=== PATIENT | female | born 1975 | race African-American/Black ===

== ENCOUNTER 2020-04-25 04:39 | Day surgery (SDC) | payer OTHER ==
[2020-04-21 17:32] VITALS: BMI 37.5
[2020-04-25] MEDS ORDERED: amLODIPine BESYLATE 5 MG TABLET (FP) PO SCH (10:00)
[2020-04-25] MEDS ORDERED: MIDAZOLAM HCL 2 MG/2 ML SINGLE DOSE VIAL ONE (11:01)
[2020-04-25] MEDS ORDERED: VANCOMYCIN 1,000 MG VIAL (RESTRICTED TO ID ONLY) ONE (11:21)
[2020-04-25] MEDS ORDERED: DEXAMETHASONE SOD PHOSPHATE 4 MG/1 ML VIAL ONE (11:48)
[2020-04-25] MEDS ORDERED: KETOROLAC TROMETHAMINE 30 MG/1 ML VIAL ONE (11:48)
[2020-04-25] MEDS ORDERED: LIDOCAINE HCL/PF 2% SDV 5ML VIAL ONE (11:48)
[2020-04-25] MEDS ORDERED: HYDROmorphone HCl 2 MG/ML VIAL ONE (11:52)
[2020-04-25] MEDS ORDERED: methylPREDNISolone ACET (DEPO) 40 MG/1 ML VIAL IM ONE (12:02)
[2020-04-25] MEDS ORDERED: BUPIVACAINE HCL/PF 0.25% (2.5MG/ML) 10 ML VIAL IJ ONE (12:02)
[2020-04-25] MEDS ORDERED: ONDANSETRON 4 MG/2 ML VIAL ONE ×2 (12:21→15:12)
[2020-04-25] MEDS ORDERED: ONDANSETRON 4 MG/2 ML VIAL IVPUSH PRN (12:25)
[2020-04-25] MEDS ORDERED: LACTATED RINGERS SOLUTION 1,000 ML IV SCH (12:30)
--- NOTE | 2020-04-25 13:18 | OP ---
DATE OF OPERATION: DATE OF DICTATION: 04/25/2020 SURGEON: Israel Hankins MD ASSISTANTS: No assistants. PREOPERATIVE DIAGNOSIS: Medial compartment osteoarthritis, knee, with varus deformity. POSTOPERATIVE DIAGNOSIS: Diffuse synovitis with medial compartment arthritis. ANESTHESIA: General. OPERATION PERFORMED: Arthroscopy, left knee, with synovial biopsy and removal of loose bodies. ([id number]) OPERATION IN DETAIL: The patient was correctly identified and brought into the operating room. The left lower extremity was prepped and draped in the routine manner with Betadine scrub solution, wiped off with alcohol, DuraPrep applied. Standard anterolateral portal and introduction of the arthroscopic scope revealed the presence of multiple loose bodies within the confines of the joint and a diffuse angry synovitis throughout the knee. The trochlear groove and retropatella assessed. The patella was relatively normal, Outerbridge level I changes. The medial femoral condyle revealed significant arthritic change and destructive arthropathy, Outerbridge level combination III and IV noted. The tibial plateau likewise also revealed changes in the tibial plateau. The meniscus itself was pristine and normal. The lateral compartment was much less involved with patchy Outerbridge level II changes with fibrinous changes noted in the cartilage only. The intercondylar notch revealed the presence of a rim osteophyte and a normal-looking anterior cruciate ligament. The loose bodies were removed via lavage. Using a pituitary rongeur delivered through the anteromedial portal multiple biopsies were taken. The tissues were sent for culture and sensitivity as well as for histopathology. This appears to be a synovitis knee either from collagen disease or crystal arthropathy. This needs to be ascertained. Free fluid that was removed from the joint at the beginning was sent for histology and crystal evaluation. The ports were closed with No. 3-0 Vicryl and Marcaine with steroid was instilled into the joint. MD JUAN Bruner/[id number] MTDD
[2020-04-25] MEDS ORDERED: oxyCODONE HCL 5 MG TABLET ONE ×2 (13:19→14:07)
[2020-04-25 13:36] VITALS: TEMP 98.1
--- NOTE | 2020-04-25 14:22 | OP ---
Operative Note - Note: Operative Date: 04/25/20 Pre-Operative Diagnosis: OA L knee Operation: Diagnostic Arthroscopy Removal loose bodies Synovial biopsy Findings: Diffuse synovitis with advanced chondrolysis medial femoral condyle Post-Operative Diagnosis: Other (Diffuse synovitis) Surgeon: Israle Hankins Anesthesia: General Specimens Removed: Synovial tissue and loose bodies Fluid Volume Replaced (mls): 1,000 Operative Report Dictated: Yes
[2020-04-25 15:55] VITALS: BP 120/74; PULSE 73
--- NOTE | 2020-04-28 17:26 | PATH ---
Surgical Pathology Report Patient Name: MARIA LUISA AVILA [facility]. Rec. #: [id number] /Age/Gender: 1975 (Age: 44) / F Account: [id number] Location: [facility] SURGICAL Taken: 04/25/2020 Received: 04/25/2020 Reported: 04/28/2020 Physicians: Israel Hankins M.D. Specimen(s) Received SYNOVITIS LEFT KNEE Clinical History Osteoarthritis, synovitis Final Diagnosis SYNOVITIS, KNEE, LEFT, ARTHROSCOPY: SYNOVIAL TISSUE WITH LYMPHOPLASMACYTIC (CHRONIC) INFLAMMATORY INFILTRATE AND REACTIVE SYNOVIAL HYPERPLASIA. SCANT BENIGN CARTILAGE PRESENT. Comment: Although these findings are non-specific, dense lymphoplasmacytic infiltrate involving synovium with reactive synovial hyperplasia may be seen in association with rheumatoid arthritis. Correlation with clinical/radiologic and serologic findings is suggested Electronically Signed Rayne Walsh M.D. Gross Description Received in formalin labeled "synovitis left knee," is a 1.4 x 1.0 x 0.4 cm aggregate of kerr soft tissue fragments. The specimen is entirely submitted in one cassette. /04/25/2020 [facility]04/25/2020
== END 2020-04-25 15:55 | disposition home or self-care (01) ==
LOC: JASU-SURG 04:39
PROVIDERS: ATTEND Orthopaedic Surgery Orthopaedic Surgery of the Spine
PROC: 0SCD4ZZ Extirpation of Matter from Left Knee Joint, Percutaneous Endoscopic Approach (ICD-10-PCS; principal; 2020-04-25 11:35)
DX: M17.12 Unilateral primary osteoarthritis, left knee (principal); M65.862 Other synovitis and tenosynovitis, left lower leg
CPT/HCPCS: 81025; 87070; 87075; 87205; 88304-TC; 89060; 94760